=== PATIENT | female | born 1985 | race Caucasian/White ===

== ENCOUNTER 2016-07-31 23:31 | Emergency (ER) | payer MEDICAID ==
[2009-12-23 15:38] VITALS: BMI 22.6
[2016-08-01 00:28] LABS: HEMOGLOBIN 13.1 g/dL (12-16); LYMPHOCYTES 33.2 % (15-50); MCH 29.6 pg (26.0-34.0); MCHC 34.5 g/dL (31.0-37.0); MCV 85.8 fL (80.0-100.0); MEAN PLATELET VOLUME 10.6 fL (7.4-10.4); NEUTROPHILS 55.6 % (40-80); RBC 4.43 10x6/uL (4.00-5.40); RDW 12.7 % (11.5-14.5); WBC 5.8 10x3/uL (4.8-10.8)
[2016-08-01 00:31] LABS: PLATELET COUNT 206 10x3/uL (130-400)
== END 2016-08-01 00:45 | disposition home or self-care (01) ==
LOC: D.ER 23:31
PROVIDERS: Nurse Practitioner Acute Care
DX: B02.9 Zoster without complications (principal); F17.200 Nicotine dependence, unspecified, uncomplicated

== ENCOUNTER → 2017-02-04 17:07 | Outpatient (CLI) | payer MEDICAID ==
[2009-12-23 15:38] VITALS: BMI 22.6
[2017-02-04 19:33] LABS: APPEARANCE CLEAR (CLEAR); BILIRUBIN NEGATIVE (NEGATIVE); COLOR YELLOW (YELLOW); GLUCOSE NEGATIVE (NEGATIVE); KETONE NEGATIVE (NEGATIVE); LEUKOCYTE ESTERASE NEGATIVE (NEGATIVE); NITRITE NEGATIVE (NEGATIVE); PROTEIN NEGATIVE (NEGATIVE); UROBILINOGEN NORMAL (NORMAL)
== END | disposition home or self-care (01) ==
LOC: D.LDO 17:07
PROVIDERS: Obstetrics & Gynecology
DX: O26.899 Other specified pregnancy related conditions, unspecified trimester (principal); Z3A.00 Weeks of gestation of pregnancy not specified; M54.5 Low back pain; N89.8 Other specified noninflammatory disorders of vagina

== ENCOUNTER 2017-02-26 22:22 | Outpatient (CLI) | payer MEDICAID ==
[2009-12-23 15:38] VITALS: BMI 22.6
== END 2017-02-26 23:05 | disposition home or self-care (01) ==
LOC: D.LDO 22:22
DX: O26.892 Other specified pregnancy related conditions, second trimester (principal); Z3A.25 25 weeks gestation of pregnancy

== ENCOUNTER → 2017-03-28 19:27 | Outpatient (CLI) | payer MEDICAID ==
[2009-12-23 15:38] VITALS: BMI 22.6
[~2017-03-28 19:27] MED LIST: AUGMENTIN 875-11 TAB PO; PERCOCET 10/3251 TA1 PO; VIBRAMYCIN 100100 MG PO; ZOFRAN ODT4 MG/UDTAB PO
[2017-03-28 20:19] LABS: APPEARANCE HAZY (CLEAR); BILIRUBIN NEGATIVE (NEGATIVE); COLOR YELLOW (YELLOW); GLUCOSE 100 mg/dL (NEGATIVE); KETONE NEGATIVE (NEGATIVE); NITRITE NEGATIVE (NEGATIVE); PROTEIN NEGATIVE (NEGATIVE); UROBILINOGEN NORMAL (NORMAL)
[2017-03-28 20:21] LABS: BACTERIA FEW /hpf (NONE SEEN); EPITHELIAL CELLS 0-5 /hpf (0-5); WHITE CELLS - URINE 0-5 /hpf (0-5)
[2017-04-26 20:43] VITALS: BMI 16.6
== END | disposition home or self-care (01) ==
LOC: D.LDO 19:27
PROVIDERS: Obstetrics & Gynecology
DX: O26.893 Other specified pregnancy related conditions, third trimester (principal); Z3A.30 30 weeks gestation of pregnancy; M54.5 Low back pain; R10.30 Lower abdominal pain, unspecified; N89.8 Other specified noninflammatory disorders of vagina; R30.0 Dysuria; R35.0 Frequency of micturition; R39.15 Urgency of urination

== ENCOUNTER → 2017-04-08 13:05 | Outpatient (CLI) | payer MEDICAID ==
[2009-12-23 15:38] VITALS: BMI 22.6
[2017-04-26 20:43] VITALS: BMI 16.6
== END | disposition home or self-care (01) ==
LOC: D.LDO 13:05
DX: O36.8130 Decreased fetal movements, third trimester, not applicable or unspecified (principal); Z3A.31 31 weeks gestation of pregnancy

== ENCOUNTER → 2017-04-12 20:52 | Outpatient (CLI) | payer MEDICAID ==
[2009-12-23 15:38] VITALS: BMI 22.6
[2017-04-26 20:43] VITALS: BMI 16.6
== END | disposition home or self-care (01) ==
LOC: D.LDO 20:52
DX: O42.913 Preterm premature rupture of membranes, unspecified as to length of time between rupture and onset of labor, third trimester (principal); Z3A.32 32 weeks gestation of pregnancy

== ENCOUNTER 2017-04-26 14:19 | Inpatient (IN) | payer MEDICAID ==
[~2017-04-26] VITALS: Ht 165.1 cm; Wt 45.5 kg
[2017-04-26] VITALS (8 sets, daily range): BP systolic 108–118; BP diastolic 52–68; Ht 165.1 cm; Wt 45.5 kg
[~2017-04-26 14:19] MED LIST changes: -AUGMENTIN 875-11 TAB PO; -PERCOCET 10/3251 TA1 PO; -VIBRAMYCIN 100100 MG PO
[2017-04-26 15:41] LABS: RBC 2.69 10x6/uL (4.00-5.40); WBC 23.6 10x3/uL (4.8-10.8)
[2017-04-26 15:44] LABS: HEMATOCRIT 22.4 % (36.0-48.0); HEMOGLOBIN 7.1 g/dL (12-16); MCH 26.4 pg (26.0-34.0); MCHC 31.7 g/dL (31.0-37.0); MCV 83.3 fL (80.0-100.0); MEAN PLATELET VOLUME 9.4 fL (7.4-10.4); PLATELET COUNT 250 10x3/uL (130-400); RDW 15.8 % (11.5-14.5)
[2017-04-26 15:47] LABS: ALBUMIN 1.7 g/dL (3.4-5.0); ALKALINE PHOSPHATASE 131 U/L (46-116); ALT (SGPT) 16 U/L (10-68); AMYLASE - SERUM 38 U/L (25-115); CALC OSMOLALITY 272 mosm/kg (275-300); CARBON DIOXIDE 28.2 mmol/L (21.0-32.0); CHLORIDE - SERUM 100 mmol/L (98-107); CREATININE - SERUM 0.5 mg/dL (0.6-1.3); GLUCOSE 104 mg/dL (74-106); LIPASE 91 U/L (73-393); POTASSIUM - SERUM 3.8 mmol/L (3.5-5.1); PROTEIN - SERUM 5.5 g/dL (6.4-8.2); SODIUM 137 mmol/L (136-145); UREA NITROGEN 10 mg/dL (7-18); eGFR NON AFRICAN AMERICAN > 90 mL/min (90-120)
[2017-04-26 16:27] LABS: APPEARANCE HAZY (CLEAR); COLOR YELLOW (YELLOW)
[2017-04-26 16:28] LABS: BILIRUBIN NEGATIVE (NEGATIVE); GLUCOSE NEGATIVE (NEGATIVE); KETONE NEGATIVE (NEGATIVE); NITRITE NEGATIVE (NEGATIVE); PROTEIN NEGATIVE (NEGATIVE); UROBILINOGEN NORMAL (NORMAL); WHITE CELLS - URINE >50 /hpf (0-5)
[2017-04-26 16:29] LABS: BACTERIA MODERATE /hpf (NONE SEEN)
[2017-04-26 16:49] LABS: LYMPHOCYTES 9 % (15-50); NEUTROPHILS 90 % (40-80); PLATELET ESTIMATE NORMAL
[2017-04-26 19:22] LABS: RBC 2.55 10x6/uL (4.00-5.40); WBC 22.5 10x3/uL (4.8-10.8)
[2017-04-26 19:23] LABS: BASOPHILS 0.2 % (0-2); EOSINOPHILS 0.5 % (0-7); HEMATOCRIT 21.2 % (36.0-48.0); HEMOGLOBIN 6.9 g/dL (12-16); IMMATURE GRANULOCYTES 3.7 % (0-5); LYMPHOCYTES 4.5 % (15-50); MCH 27.1 pg (26.0-34.0); MCHC 32.5 g/dL (31.0-37.0); MCV 83.1 fL (80.0-100.0); MEAN PLATELET VOLUME 9.2 fL (7.4-10.4); MONOCYTES 5.5 % (2-11); NEUTROPHILS 85.6 % (40-80); PLATELET COUNT 246 10x3/uL (130-400); RDW 15.6 % (11.5-14.5)
--- NOTE | 2017-04-26 20:30 | NUR ---
DR SULLIVAN NOTIFIED TO CLARIFY PRBC ORDER, ORDERS TO TRANSFUSE 2 UNITS, MAY CANCEL OTHER ORDER FOR PRBC
--- NOTE | 2017-04-26 20:39 | NUR ---
RECEIVED PT VIA STRETCHER FROM ED, PT AMB TO BR, GAIT STEADY, GOWN, REJI PAD AND PANTIES PROVIDED AT THIS TIME
--- NOTE | 2017-04-26 20:43 | NUR ---
PT OUT OF BR, TO BED, PT REPORTS HAVING A LOOSE BM, ADMITTING ASSESSMENT AND HISTORY STARTED
--- NOTE | 2017-04-26 20:45 | NUR ---
BLOOD CONSENT SIGNED AND WITNESSED PER THIS RN AND HIRO BENITO RN
[2017-04-26] MEDS ORDERED: PERCOCET 10/3251 TA1 PO (21:10)
--- NOTE | 2017-04-26 21:11 | NUR ---
ADMITTING ASSESSMENT AND HISTORY COMPLETED, SALINE LOCK IN RIGHT WRIST AND LEFT FA CONVERTED TO IV, NS STARTED IN RIGHT WRIST INFUSING VIA PUMP AT 125 ML/HR, AND NS STARTED IN LEFT FA INFUSING VIA PUMP AT 50 ML/HR FOR PRBC, SCD'S APPLIED AND WORKING PROPERLY, PT INST ON BLOOD TRANSFUSION, VERBALIZES UNDERSTANDING, DENIES NEEDS OR PAIN AT THIS TIME
--- NOTE | 2017-04-26 21:36 | NUR ---
BLOOD VERIFIED AND INITIATED PER P AND P. MEDS GIVEN ORDERED. PT SIPPING ON MAG CIT. STATES IT MAKES HER NAUSEATED. SWALLOWED DUCOLAX WITHOUT DIFFICULTY.
--- NOTE | 2017-04-26 22:15 | NUR ---
DENIES PAIN AT THIS TIME. STILL SIPPING WITH ENCOURAGEMENT ON MAG CIT. LESS THAN 2 OZ INGESTED SO FAR.
--- NOTE | 2017-04-26 22:42 | NUR ---
PT RESTING WITH EYES CLOSED, AROUSES TO SOFT VERBAL STIMULATION, DILAUDID TRUST EVALUATION SUPERVISOR INITIATED FOR PAIN MANAGEMENT, PT DENIES PAIN AT THIS TIME, PT INST ON AND VERBALIZES UNDERSTANDING OF TRUST EVALUATION SUPERVISOR, CHAVEZ SAUNDERS RN CONTINUES MONITORING OF BLOOD TRANSFUSION
[2017-04-27] VITALS (11 sets, daily range): BP systolic 104–123; BP diastolic 54–77
--- NOTE | 2017-04-27 00:10 | NUR ---
FIRST UNIT OF PRBC FINISHED INFUSING, CHAVEZ SAUNDERS RN IN CHANGING TUBING FOR SECOND UNIT
--- NOTE | 2017-04-27 00:25 | NUR ---
CHAVEZ SAUNDERS RN AND THIS RN VERIFIES PRBC, CHAVEZ SAUNDERS RN STARTED 2ND UNIT AND CONTINUES AT BEDSIDE
--- NOTE | 2017-04-27 00:38 | NUR ---
UP TO BATHROOM. NO DIZZINESS NOTED. PT WITH 2ND UNIT OF B+ BLOOD INFUSING IN COMPLIANCE WITH [facility]. VERIFIED BEFORE ADMINISTRATION WITH 2ND NURSE.
--- NOTE | 2017-04-27 02:25 | NUR ---
2ND UNIT FINISHED INFUSING, LINE FLUSHING WITH NS, PT UP TO BR WITH ASSISTANCE, GAIT STEADY, PT REQUESTS TO SIT ON TOILET FOR A FEW MINUTES, PT INST TO USE CALL LIGHT FOR ANY ASSISTANCE
--- NOTE | 2017-04-27 02:46 | NUR ---
THIS RN BACK TO ROOM, PT IN BED AT THIS TIME, SCD'S RECONNECTED AND WORKING PROPERLY, OBTAINED ANOTHER TEMP, TEMP 100.6, ADM TYLENOL RC AND HUNG MERREM IVPB PER MD ORDERS, SEE EMAR, IV IN LEFT FA CONVERTED TO SL, FLUSHED WITH 10MLS OF NS WITH NO DIFFICULTY, PT INFORMED THAT I WILL BE BACK AROUND 0325 TO OBTAIN 1 HOUR POST OP VITAL SIGNS, AND THAT LAB WILL BE DOWN THIS MORNING AROUND 5AM TO OBTAIN LAB DRAW, PT VERBALIZES UNDERSTANDING, PT USING COLLECTION ADMINISTRATOR "A LITTLE" FOR PAIN OF 3/10, PT DENIES NEEDS AT THIS TIME
--- NOTE | 2017-04-27 03:25 | NUR ---
PT RESTING WITH EYES CLOSED, AROUSES TO SOFT VERBAL STIMULATION, 1 HOUR POST OP VS OBTAINED, RATES INC PAIN 3/10, PT INST TO PUSH PROCUREMENT PROFESSIONAL LOGISTICS BUTTON AT THIS TIME, PT DENIES NEEDS
--- NOTE | 2017-04-27 05:30 | NUR ---
NEW BAG OF NS HUNG INFUSING VIA PUMP 125 ML/HR, SCD'S CONTINUE ON AND WORKING PROPERLY, NO NEEDS VOICED
[2017-04-27 07:12] LABS: BASOPHILS 0.2 % (0-2); EOSINOPHILS 1.4 % (0-7); HEMOGLOBIN 8.9 g/dL (12-16); IMMATURE GRANULOCYTES 6.2 % (0-5); LYMPHOCYTES 6.1 % (15-50); MCH 27.4 pg (26.0-34.0); MCV 83.1 fL (80.0-100.0); MEAN PLATELET VOLUME 9.5 fL (7.4-10.4); MONOCYTES 4.6 % (2-11); NEUTROPHILS 81.5 % (40-80); PLATELET COUNT 226 10x3/uL (130-400); RBC 3.25 10x6/uL (4.00-5.40); RDW 14.9 % (11.5-14.5)
[2017-04-27 07:14] LABS: ALBUMIN 1.6 g/dL (3.4-5.0); ALKALINE PHOSPHATASE 121 U/L (46-116); ALT (SGPT) 14 U/L (10-68); CALC OSMOLALITY 282 mosm/kg (275-300); CARBON DIOXIDE 24.2 mmol/L (21.0-32.0); CHLORIDE - SERUM 107 mmol/L (98-107); CREATININE - SERUM 0.4 mg/dL (0.6-1.3); GLUCOSE 91 mg/dL (74-106); POTASSIUM - SERUM 3.8 mmol/L (3.5-5.1); SODIUM 142 mmol/L (136-145); UREA NITROGEN 13 mg/dL (7-18); eGFR NON AFRICAN AMERICAN > 90 mL/min (90-120)
--- NOTE | 2017-04-27 07:21 | NUR ---
SHIFT REPORT TO KANE PONCE RN
--- NOTE | 2017-04-27 09:48 | NUR ---
PT IS UP TO BR TO VOID. SHE IS DOING OK. OFFERS NO COMPLAINTS AT THIS TIME. IS LOOKING FORWARD TO BEING DISCHAGED AND GOING TO SEE HER BABY WHO IS IN CONFUCIANIST.
--- NOTE | 2017-04-27 11:20 | NUR ---
BREASTPUMP LOAN FORM SIGNED BY PATIENT. BREASTPUMP AND BREAST PUMP APPARATUS PROVIDED WITH INSTRUCTIONS ON USE. ASSISTED TO GET APPARATUS IN PLACE AND NOTING IMMEDIATE RETURN OF BREASTMILK. INSTRUCTED TO PUMP FOR AT LEAST 10 MIN EACH BREAST EVERY 2 HR DURING WAKING HOURS AND TO LABEL EACH SPECIMEN WITH TIME DATE OF COLLECTION AND TIME/DATE OF LAST NARCOTIC TAKEN. PATIENT IS ON DIALUDID ORTHOPEDICS NURSE. LABELS PROVIDED. VERBALIZES UNDERSTANDING OF SAME.
--- NOTE | 2017-04-27 14:10 | NUR ---
PT IS RESTING . BED IS LOW, SIDE RAILS UP X 2 AND CALL LIGHT IN REACH.
[2017-04-27 14:25] LABS: BASOPHILS 0.1 % (0-2); EOSINOPHILS 1.6 % (0-7); HEMATOCRIT 25.6 % (36.0-48.0); HEMOGLOBIN 8.4 g/dL (12-16); LYMPHOCYTES 5.6 % (15-50); MCHC 32.8 g/dL (31.0-37.0); MCV 82.3 fL (80.0-100.0); MEAN PLATELET VOLUME 9.7 fL (7.4-10.4); MONOCYTES 6.4 % (2-11); NEUTROPHILS 79.3 % (40-80); PLATELET COUNT 226 10x3/uL (130-400); RBC 3.11 10x6/uL (4.00-5.40); WBC 19.2 10x3/uL (4.8-10.8)
--- NOTE | 2017-04-27 18:50 | NUR ---
RECEIVED SHIFT REPORT FROM KANE PONCE RN
--- NOTE | 2017-04-27 19:25 | NUR ---
PT IS USING BREASTPUMP AT THIS TIME, REQUESTS SOME ASSISTANCE, PRAVIN DEAL RN FROM [facility] TO ROOM FOR ASSISTANCE AT THIS TIME, INFORMED PT THAT I WILL BE BACK SHORTLY TO DO ASSESSMENT, PT VERBALIZES UNDERSTANDING
--- NOTE | 2017-04-27 20:05 | NUR ---
ASSESSMENT PER FLOW SHEET, VS OBTAINED, SALINE LOCK IN LEFT FA INTACT WITH NO REDNESS OR EDEMA, IV IN RIGHT WRIST INTACT WITH NO REDNESS OR EDEMA INFUSING VIA PUMP NS AT 125 ML/HR, DILAUDID METAL CUTTER TO DELIVER 0.2MG/10MINS FOR PAIN CONTROL, PT RATES INC PAIN 07/23, BIKINI INC WITH DERMABOND CDI WITH NO DRAINAGE NOTED, PT REPORTS LITE BLEEDING WITH NO CLOTS, PT REPORTS FLATUS, SEVERAL BM'S TODAY, AND VOIDING WITH NO DIFFICULTY, EMPTIED 900 MLS OF LIGHTLY BLOOD TINGED URINE FROM [place] HAT, PT REPORTS THAT IS 3 VOIDS, PT INST THAT WHILE IN BED, SCD'S HAD TO BE WORN, SCD'S APPLIED AND WORKING PROPERLY, PT INFORMED OF TEMP AND WILL NEED TYLENOL, PT REQUESTS THAT SHE TAKE THE TYLENOL ORALLY AND NOT RECTALLY, INFORMED PT THAT I WILL CONTACT THE DOCTOR WELL TESTING OPERATOR AND SEE ABOUT GETTING IT CHANGED, PT VERBALIZES UNDERSTANDING
--- NOTE | 2017-04-27 20:23 | NUR ---
DR OCHOA NOTIFIED, REPORT OF PT'S TEMP AND REQUEST FOR TYLENOL ORALLY, ORDERS RECEIVED
--- NOTE | 2017-04-27 20:33 | NUR ---
NEW BAG OF NS HUNG VIA PUMP AND ADM TYLENOL PO PER MD ORDERS, SEE EMAR, PT DENIES FURTHER NEEDS AT THIS TIME
--- NOTE | 2017-04-27 21:05 | NUR ---
PT PLANTING MATERIAL UNLOADER LIGHT, SCD'S DISCONNECTED, UP TO BR, GAIT STEADY, VOIDED 500 MLS OF LIGHTLY BLOOD TINGED URINE, PT BACK TO BED, SCD'S RECONNECTED AND WORKING PROPERLY, DENIES FURTHER NEEDS
--- NOTE | 2017-04-27 22:00 | NUR ---
PT AWAKE, LOOKING AT CELL PHONE, OBTAINED TEMP, PT DENIES NEEDS AT THIS TIME
--- NOTE | 2017-04-27 22:25 | NUR ---
PT STOCK SHEETS CLEANER INSPECTOR LIGHT, PT UP TO BR, GAIT STEADY, I ENC PT TO AMB IN [place] AFTER VOIDING, PT AGREES, PT AMB IN [place] TO NSY AND BACK TO ROOM, GAIT STEADY, THIS RN AT SIDE, PT BACK TO BED, SCD'S REAPPLIED AND WORKING PROPERLY, PT SHOW'S ME PICTURES OF NEW BABY, PT DENIES FURTHER NEEDS AT THIS TIME
--- NOTE | 2017-04-28 00:22 | NUR ---
PT RESTING WITH EYES CLOSED, RESP QUIET, NO DISTRESS NOTED, LEFT UNDISTURBED AT THIS TIME, SCD'S CONTINUE ON AND WORKING PROPERLY
--- NOTE | 2017-04-28 02:39 | NUR ---
PT RESTING WITH EYES CLOSED, AROUSES TO SOFT VERBAL STIMULATION, MERREM HUNG IVPB PER MD ORDERS, SEE EMAR, SCD'S DISCONNECTED, PT UP TO BR, GAIT STEADY, PT INST TO USE CALL LIGHT WHEN FINISHED OR FOR ANY NEEDS, PT VERBALIZES UNDERSTANDING
--- NOTE | 2017-04-28 04:13 | NUR ---
PT RESTING WITH EYES CLOSED, RESP QUIET, NO DISTRESS NOTED, LEFT UNDISTURBED AT THIS TIME
--- NOTE | 2017-04-28 05:14 | NUR ---
NEW BAG OF NS HUNG VIA PUMP PER MD ORDERS, SEE EMAR, I&O'S COLLECTED, SCD'S CONTINUE ON AND WORKING PROPERLY, PT DENIES NEEDS AT THIS TIME
--- NOTE | 2017-04-28 05:50 | NUR ---
PT WARDROBE TECHNICIAN LIGHT, SCD'S DISCONNECTED, PT UP TO BR, GAIT STEADY, PT INST TO USE CALL LIGHT WHEN BACK IN BED
--- NOTE | 2017-04-28 06:06 | NUR ---
PT WINDOW TREATMENT INSTALLER LIGHT, PT BACK TO BED, EMPTIED 450 MLS OF LIGHTLY BLOOD TINGED URINE FROM [place] HAT, PT REPORTS HAVING A "VERY LARGE" FORMED BM, STATES "I FEEL BETTER", SCD'S RECONNECTED AND WORKING PROPERLY, PT DENIES FURTHER NEEDS
--- NOTE | 2017-04-28 06:50 | NUR ---
SHIFT REPORT TO KANE PONCE RN
--- NOTE | 2017-04-28 07:15 | NUR ---
PT IS RECEIVED THIS AM LYING IN BED. SHE STATES THAT SHE IS FEELING BETTER THIS AM. SHE STATES THAT SHE HAD A VERY LARGE BM THIS AM. GEN- AWAKE AND ALERT. LUNGS-CLEAR. HEART- RRR. ABD- SOFT, NT. LOW TRANSVERSE INCISION HEALED. EXT- WITH SCD'S INTACT. PT HAS IV R WRIST WHICH IS PATENT WITH NS INFUSING AT 125 CC/HR. SHE ALSO HAS SALINE LOCK NOTED L FOREARM. BED IS LOW, SIDE RAILS UP X 2 AND CALL LIGHT IN REACH.
--- NOTE | 2017-04-28 08:32 | NUR ---
pt had temp of 100.7 tylenol given po.
[2017-04-28 08:49] VITALS: BP 115/55
--- NOTE | 2017-04-28 09:11 | NUR ---
PTS [place] CATH WAS REMOVED. 800 CC THIS AM.
--- NOTE | 2017-04-28 09:13 | NUR ---
DR SULLIVAN IS HERE TO SEE PT. TOLD HIM ABOUT FEVER LAST PM AND THIS AM. HE REQUESTED A CONSULT BY DR OLIVARES. I PAGED DR OLIVARES AND GAVE HER THE CONSULT. SHE WANTS BLOOD CULTURES DONE. SHE WILL SEE HER TODAY.
[2017-04-28 09:27] LABS: BASOPHILS 0.2 % (0-2); EOSINOPHILS 1.4 % (0-7); HEMATOCRIT 26.3 % (36.0-48.0); HEMOGLOBIN 8.6 g/dL (12-16); LYMPHOCYTES 6.6 % (15-50); MCHC 32.7 g/dL (31.0-37.0); MCV 82.4 fL (80.0-100.0); MEAN PLATELET VOLUME 9.2 fL (7.4-10.4); MONOCYTES 6.6 % (2-11); NEUTROPHILS 78.2 % (40-80); PLATELET COUNT 239 10x3/uL (130-400); RBC 3.19 10x6/uL (4.00-5.40); RDW 15.1 % (11.5-14.5); WBC 20.6 10x3/uL (4.8-10.8)
--- NOTE | 2017-04-28 09:49 | NUR ---
CBC RESULTS FROM 915 WBC 20.6 H&H- 8.6/26.3
[2017-04-28 12:30] VITALS: BP 111/57
--- NOTE | 2017-04-28 13:00 | NUR ---
PT IS RESTING IN BED. NO COMPLAINTS. BED IS LOW, SIDE RAILS UP X 2 AND CALL LIGHT IN REACH.
--- NOTE | 2017-04-28 15:52 | NUR ---
PT IS SLEEPING. BED IS LOW, SIDE RAILS UP X 2 AND CALL LIGHT IN REACH.
--- NOTE | 2017-04-28 18:04 | NUR ---
PT IS LYING IN BED WATCHING TV. HER UNASYN DOSE WAS INITIATED. SHE OFFERS NO COMPLAINTS. HER TEMP IS 102.3. SHE HAS VOIDED TIMES THREE. IV PATENT R WRIST. SALINE LOCK D'CD LEFT FOREARM. TIP INTACT. BED IS LOW. SIDE RAILS UP X 2 AND CALL LIGHT IN REACH.
--- NOTE | 2017-04-28 18:10 | NUR ---
TYLENOL GIVEN FOR FEVER PO
--- NOTE | 2017-04-28 19:32 | NUR ---
ASSESSMENT PER FLOW SHEET, WILL OBTAIN VS AT BEDTIME, IV IN RIGHT WRIST INTACT WITH NO REDNESS OR EDEMA INFUSING VIA PUMP NS AT 125 ML/HR, BIKINI INC WITH DERMABOND CDI WITH NO DRAINAGE, SLIGHT REDNESS TO UPPER RIGHT SIDE OF INC, REJI PAD OVER INC FOR COMFORT AND MOISTURE CONTROL, PT REPORTS FLATUS, SEVERAL BM'S TODAY AND VOIDING BY SELF WITH NO DIFFICULTY, PT UP TO CHAIR, BEDDING CHANGED, CLEAN GOWN APPLIED TO PT, TOILETRIES PROVIDED, TRASH REMOVED, PT IS GOING TO CONTINUE SITTING IN RECLINER AND BRUSH HAIR OUT, PT DENIES FURTHER NEEDS OR PAIN AT THIS TIME
[2017-04-28 20:40] VITALS: BP 100/53
--- NOTE | 2017-04-28 20:40 | NUR ---
PT RESTING IN BED, VS OBTAINED, SCD'S PLACED ON AND WORKING PROPERLY, DENIES NEEDS OR PAIN AT THIS TIME
--- NOTE | 2017-04-28 21:28 | NUR ---
PT RESTING WITH EYES CLOSED, RESP QUIET, NO DISTRESS NOTED, LEFT UNDISTURBED AT THIS TIME
--- NOTE | 2017-04-28 21:47 | NUR ---
PT CHANGE MANAGEMENT LIGHT, SCD'S DISCONNECTED, PT UP TO BR, GAIT STEADY, VOIDED 300 MLS OF LIGHTLY BLOOD TINGED URINE BY SELF WITH NO DIFFICULTY, PT BACK TO BED, SCD'S RECONNECTED AND WORKING PROPERLY, DENIES PAIN, REQUESTED AND SERVED ICE CHIPS, DENIES FURTHER NEEDS
--- NOTE | 2017-04-28 22:10 | NUR ---
PT AWAKE, DENIES NEEDS OR PAIN AT THIS TIME
--- NOTE | 2017-04-28 23:52 | NUR ---
VÍCTOR WELLS, FURNACE FEEDER NOTIFIED FOR UNASYN, ORDER FAXED TO HER
--- NOTE | 2017-04-29 00:28 | NUR ---
PT RESTING WITH EYES CLOSED, AROUSES TO SOFT VERBAL STIMULATION, TEMP 99.9, NEW BAG OF NS HUNG AND UNASYN HUNG IVPB PER MD ORDERS, SEE EMAR, PT DENIES NEEDS OR PAIN AT THIS TIME
--- NOTE | 2017-04-29 01:03 | NUR ---
DOXYCYCLINE HUNG IVPB PER MD ORDERS, SEE EMAR
--- NOTE | 2017-04-29 02:35 | NUR ---
PT TANNING CONSULTANT LIGHT, SCD'S DISCONNECTED, PT UP TO BR, VOIDED BY SELF WITH NO DIFFICULTY, PT BACK TO BED, SCD'S RECONNECTED AND WORKING PROPERLY, DENIES FURTHER NEEDS OR NEED FOR PAIN MED
--- NOTE | 2017-04-29 04:30 | NUR ---
PT RESTING WITH EYES CLOSED, RESP QUIET, NO DISTRESS NOTED, LEFT UNDISTURBED AT THIS TIME
[2017-04-29 05:51] LABS: BASOPHILS 0.2 % (0-2); EOSINOPHILS 1.2 % (0-7); HEMATOCRIT 26.5 % (36.0-48.0); HEMOGLOBIN 8.7 g/dL (12-16); IMMATURE GRANULOCYTES 3.5 % (0-5); LYMPHOCYTES 6.6 % (15-50); MCH 27.2 pg (26.0-34.0); MCHC 32.8 g/dL (31.0-37.0); MCV 82.8 fL (80.0-100.0); MEAN PLATELET VOLUME 9.4 fL (7.4-10.4); MONOCYTES 5.1 % (2-11); NEUTROPHILS 83.4 % (40-80); PLATELET COUNT 237 10x3/uL (130-400); RDW 15.1 % (11.5-14.5); WBC 19.9 10x3/uL (4.8-10.8)
--- NOTE | 2017-04-29 06:19 | NUR ---
PT RESTING WITH EYES CLOSED, AROUSES TO SOFT VERBAL STIMULATION UNASYN HUNG IVPB PER MD ORDERS, SEE EMAR, TEMP 100.2, WILL CONTINUE TO MONITOR, PT DENIES NEEDS OR PAIN AT THIS TIME
[2017-04-29 07:30] VITALS: BP 119/64
--- NOTE | 2017-04-29 07:30 | NUR ---
PT WAS RECEIVED THIS AM LYING IN BED. PT STATES THAT SHE IS READY TO GO HOME. GEN- AWAKE AND ALERT. LUNGS- CLEAR. HEART- RRR. ABD- SOFT WITH TENDERNESS, BS +. INCISION IS HEALING FROM C- SEC DONE 04/21. EXT - WITH NO EDEMA. SCD'S INTACT. IV PATENT R FOREARM. BED IS LOW, SIDE RAILS UP X 2 AND CALL LIGHT IN REACH.
--- NOTE | 2017-04-29 07:30 | NUR ---
PELVIC US DONE THIS AM.
--- NOTE | 2017-04-29 08:46 | NUR ---
DR OLIVARES IS HERE TO SEE PT. NEW ORDERS NOTED.
--- NOTE | 2017-04-29 09:07 | NUR ---
PT IS UP AMBULATING IN HALLWAY.
--- NOTE | 2017-04-29 09:53 | NUR ---
PT IS RESTING IN BED. SHE OFFERS NO COMPLAINTS.
--- NOTE | 2017-04-29 12:54 | NUR ---
PT IS UP AMBULATING IN HALLWAY. SHE OFFERS NO COMPLAINTS. PT BACK TO ROOM AND IV ANTIBIOTIC, UNASYN INITIATED. TEMP IS 99.3.
--- NOTE | 2017-04-29 14:16 | NUR ---
HUNG IV ANTIBIOTIC DOXYCYCLINE. PT OFFERS NO COMPLAINTS.
--- NOTE | 2017-04-29 14:40 | NUR ---
PT TRANSFERRED TO 2204. REPORT GIVEN TO VÍCTOR FOSTER. NO PROBLEMS ENCOUNTERD. PT IN BED. SIDE RAILS UP X 2 BED IS LOW AND CALL LIGHT IN REACH. IV PATENT R WRIST.
--- NOTE | 2017-04-29 14:55 | NUR ---
BEDSIDE REPORT OBTAINED FROM KANE RN, PT TRANSFERED TO ROOM 2205 FROM [facility] WITH UTERINE INFECTION. PIV NOTED TO RIGHT FORARM. PATENT TO FLUIDS PER ORDER.
[2017-04-29 15:51] VITALS: BP 124/58
--- NOTE | 2017-04-29 18:10 | NUR ---
PT HAS NO COMPLAINTS AT THIS TIME. STATES INCISIONAL AREA IS OK-STILL WARM AND PINK. HOPING FOR DISCHARGE ON TUESDAY. CALL LIGHT IN REACH
[2017-04-29 20:00] VITALS: BP 124/59
[2017-04-30] VITALS: BP 100/57
[2017-04-30 04:00] VITALS: BP 109/67
--- NOTE | 2017-04-30 07:54 | NUR ---
PATIENT IS RESTING IN HER BED. PATIENT IS AWAKE, ALERT, AND ORIENTED X4. NO COMPLAINTS OF PAIN AT PRESENT TIME. CALL LIGHT IN PATIENT'S REACH. PATIENT DENIES ANY NEEDS AT PRESENT TIME. WILL MONITOR PATIENT FOR ANY NEEDS.
[2017-04-30 08:01] LABS: BASOPHILS 0.2 % (0-2); EOSINOPHILS 1.2 % (0-7); HEMATOCRIT 28.4 % (36.0-48.0); HEMOGLOBIN 9.3 g/dL (12-16); IMMATURE GRANULOCYTES 1.8 % (0-5); LYMPHOCYTES 6.2 % (15-50); MCH 27.3 pg (26.0-34.0); MCHC 32.7 g/dL (31.0-37.0); MCV 83.3 fL (80.0-100.0); MONOCYTES 3.4 % (2-11); NEUTROPHILS 87.2 % (40-80); PLATELET COUNT 244 10x3/uL (130-400); RBC 3.41 10x6/uL (4.00-5.40); RDW 15.2 % (11.5-14.5); WBC 18.8 10x3/uL (4.8-10.8)
[2017-04-30 08:15] LABS: ALBUMIN 1.6 g/dL (3.4-5.0); ALKALINE PHOSPHATASE 100 U/L (46-116); ALT (SGPT) 12 U/L (10-68); BILIRUBIN - TOTAL 0.31 mg/dL (0.2-1.3); CALC OSMOLALITY 275 mosm/kg (275-300); CALCIUM 7.9 mg/dL (8.5-10.1); CARBON DIOXIDE 24.1 mmol/L (21.0-32.0); CHLORIDE - SERUM 106 mmol/L (98-107); CREATININE - SERUM 0.3 mg/dL (0.6-1.3); GLUCOSE 90 mg/dL (74-106); POTASSIUM - SERUM 3.4 mmol/L (3.5-5.1); PROTEIN - SERUM 5.7 g/dL (6.4-8.2); SODIUM 140 mmol/L (136-145); UREA NITROGEN 5 mg/dL (7-18); eGFR NON AFRICAN AMERICAN > 90 mL/min (90-120)
[2017-04-30 09:38] VITALS: BP 110/55
[2017-04-30 13:41] VITALS: BP 112/60
[2017-04-30 15:51] VITALS: BP 120/64
--- NOTE | 2017-04-30 18:43 | NUR ---
PATIENT RESTING IN BED AND LOOKING AT HER CELL PHONE. PATIENT DENIES ANY NEEDS AT PRESENT TIME. CALL LIGHT IN PATIENT'S REACH. WILL MONITOR PATIENT FOR ANY NEEDS.
--- NOTE | 2017-04-30 19:15 | NUR ---
RECEIVED CARE FROM DAY NURSE. PT UP IN RESTROOM AT THIS TIME.
[2017-04-30 20:00] VITALS: BP 102/42
[2017-05-01] VITALS: BP 102/52
--- NOTE | 2017-05-01 02:56 | NUR ---
PT LYING IN BED ON SIDE. EYES CLOSED. RESP EVEN AND UNLABORED. CALL LIGHT AT SIDE.
[2017-05-01 04:00] VITALS: BP 107/59
[2017-05-01 05:03] LABS: BASOPHILS 0.2 % (0-2); EOSINOPHILS 1.4 % (0-7); HEMATOCRIT 29.8 % (36.0-48.0); HEMOGLOBIN 9.6 g/dL (12-16); IMMATURE GRANULOCYTES 1.3 % (0-5); LYMPHOCYTES 7.6 % (15-50); MCH 27.4 pg (26.0-34.0); MCHC 32.2 g/dL (31.0-37.0); MCV 85.1 fL (80.0-100.0); MEAN PLATELET VOLUME 9.2 fL (7.4-10.4); MONOCYTES 4.1 % (2-11); NEUTROPHILS 85.4 % (40-80); RDW 15.2 % (11.5-14.5); WBC 16.8 10x3/uL (4.8-10.8)
[2017-05-01 05:08] LABS: PLATELET COUNT 299 10x3/uL (130-400)
[2017-05-01 05:31] LABS: ALBUMIN 1.7 g/dL (3.4-5.0); ALKALINE PHOSPHATASE 104 U/L (46-116); ALT (SGPT) 13 U/L (10-68); BILIRUBIN - TOTAL 0.27 mg/dL (0.2-1.3); CALC OSMOLALITY 279 mosm/kg (275-300); CALCIUM 8.2 mg/dL (8.5-10.1); CARBON DIOXIDE 25.4 mmol/L (21.0-32.0); CHLORIDE - SERUM 107 mmol/L (98-107); GLUCOSE 91 mg/dL (74-106); POTASSIUM - SERUM 3.6 mmol/L (3.5-5.1); SODIUM 142 mmol/L (136-145); UREA NITROGEN 5 mg/dL (7-18)
[2017-05-01 05:40] LABS: CREATININE - SERUM 0.4 mg/dL (0.6-1.3); eGFR NON AFRICAN AMERICAN > 90 mL/min (90-120)
[2017-05-01 08:15] VITALS: BP 112/58
[2017-05-01] MEDS ORDERED: VIBRAMYCIN 100100 MG PO (11:49)
[2017-05-01] MEDS ORDERED: AUGMENTIN 875-11 TAB PO (11:49)
--- NOTE | 2017-05-10 15:43 | CN ---
PATIENT NAME:SHILPA BRYANT MEDICAL RECORD: [id number] : 81 LOCATION:[facility] ADMIT DATE: 04/26/17 ACCOUNT: [id number] CONSULTING PHYSICIAN: CRISTIN ZAMAN MD REFERRING PHYSICIAN: EVA SULLIVAN MD DATE OF CONSULTATION: 04/26/2017 ADDENDUM CHIEF COMPLAINT: Abdominal pain. HISTORY OF PRESENT ILLNESS: I was asked to see the patient to rule out an iatrogenic injury to the large or small bowel or a bowel perforation. I have personally reviewed her CT images. I have personally reviewed the CT report. I examined the patient in the presence of a female nurse. The patient recently underwent a through a Pfannenstiel incision in [place]. She now presents with suprapubic pain and tenderness as well as fever. Clinically, she has had endometritis. On the CT scan, it appears that her very swollen uterus is compressing the rectosigmoid junction and this is leading to a backup of flatus as well as fecal material. Her colon is markedly distended. There is no free air. During the examination, she kept pushing my hands away. This limited my ability to examine her abdomen. Her abdomen is markedly distended and tympanitic. The tenderness is present in the lower quadrants but mainly in the suprapubic area. There is no peritonitis to percussion. A lot of palpation aggravates. Nothing alleviates. She describes her symptoms as severe. This is a consultation note addendum. For the typed portion of the consult note, please see the chart. This would include the past medical and surgical history, current medications, allergies, social history as well as family history. REVIEW OF SYSTEMS: No nausea, no vomiting. Positive for fever. No chills. Positive for abdominal pain. No headache, no chest pain, no shortness of breath. Review of systems is negative other than as is described above. PHYSICAL EXAMINATION: GENERAL: The patient does not appear acutely ill. She does appear chronically ill. VITAL SIGNS: Reviewed. The entire physical examination was performed in the presence of a female nurse. EARS: External ears appear normal. EYES: Extraocular movements are intact. NECK: Trachea is midline. CHEST: No intercostal retractions. PULMONARY: Nonlabored, no stridor. ABDOMEN: As described above. EXTREMITIES: No peripheral cyanosis. INTEGUMENT: No rash, no ulcerations. PSYCHIATRIC: Anxious affect. NEUROLOGIC: Nonfocal, no lethargy. BACK: No thoracic kyphosis. CONSULT REPORT [id number] SHILPA BRYANT LYMPHATICS: No lymphangitic streaking of the exposed extremities. IMPRESSION: Endometritis with a very swollen uterus compressing the rectosigmoid junction leading to the appearance of a partial large bowel obstruction. PLAN: I have encouraged the patient to sleep on her side tonight. She states she cannot do that because it makes incision hurt too much. I will order Dulcolax tablets as well as magnesium citrate. PLAN: I will see the patient on a p.r.n. basis. TRANSINT:[id number] Voice Confirmation ID: [id number] DOCUMENT ID: [id number] CRISTIN ZAMAN MD at 1543 CC: [id number] DICTATION DATE: 04/26/172032 DAIRY FARMWORKER: 04/27/17 0009 DIS IN 05/01/17 [id number] [place] [address]
--- NOTE | 2017-06-25 06:53 | DS ---
PATIENT:SHILPA BRYANT :81 MEDICAL RECORD: [id number] DISCHARGE SUMMARY ADMISSION DATE: 04/26/17 DISCHARGE DATE: 05/01/17 HISTORY OF PRESENT ILLNESS: The patient was admitted on 04/26/2017. I evaluated the patient in the Emergency Room who is postop day #10 status post section at [facility] for rupture of membranes, complicated by chorioamnionitis. The patient came to the Emergency Room with worsening abdominal pain and distention and was noted to be febrile to 102 temperature. PAST MEDICAL HISTORY: The patient had a past medical history significant for; 1. Chorioamnionitis. 2. LATEX ALLERGY. 3. Smoker. 4. Asthma. 5. The patient had a history of gestational diabetes. PAST SURGICAL HISTORY: The patient had a surgical history significant for , orthopedic surgery involving the jaw and elbow as well as surgery and a cleft palate. ALLERGIES: The patient reported ALLERGY TO CODEINE. MEDICATIONS: Included only Zofran at that time. FAMILY HISTORY: The patient reported no significant family history. SOCIAL HISTORY: The patient reported being a daily smoker and no use of drugs or alcohol. PHYSICAL EXAMINATION: VITAL SIGNS: Stable on admission with the exception of a febrile episode in the Emergency Room. LUNGS: Clear to auscultation. CARDIOVASCULAR: Regular rate and rhythm. ABDOMEN: The abdomen was found to be significantly distended, although soft, without rebound or guarding. Erythema was noted around the incision. However, the incision was not found to be flocculent in anyway. ASSESSMENT AND PLAN: At that time, fever likely suspected endometritis with patient's history of chorioamnionitis. The wound was clean, dry, and intact with small amount of erythema. The patient had a CT scan, which revealed no abscess in the pelvis or inferior to the incision. Abdominal distension was questionable for inflammatory ileus. The patient was having flatus and no vomiting. Surgical consultation was obtained. It was felt that the findings were not consistent with any type of bowel injury as there are no fluid collection or abscess. The patient also has LATEX ALLERGY, smoker, had asthma, and anemia. At that time, he was admitted for IV antibiotics, Invanz, pain control with a Dilaudid CUT FILE CLERK and transfusion of 2 packed units of red blood cells. The patient was monitored closely for peritonitis with plan to obtain serial white blood cell counts. On hospital day #2, the patient's white blood cell count was found to be decreasing. The patient with slightly less distention and continuing flatus and antibiotics were continued. The patient had received 2 units of DISCHARGE SUMMARY REPORT [id number] SHILPA BRYANT packed red cells and hemoglobin was found to increase to 9.3, white count had decreased from 20.6 to 18.8. On hospital day #3, the patient had another spike to approximately 102, on meropenem. Initial cultures taken at admission showed no growth. The patient was changed to p.o. pain meds at that time. An ultrasound was ordered to evaluate for possible pyometrium or retained products of conception. White blood cell count did increase to 20. On hospital day #3, an infectious disease was consulted. On hospital day #4, the patient had a T-max of 102 at 6:00 p.m. the day before with further decrease in abdominal distention, antibiotics were changed per Dr. Hanson of infectious disease. White blood cell count had decreased from 20 to 19. Hemoglobin remained stable. Pain was well controlled with p.o. pain meds and the patient was tolerating general diet. On hospital day #5, T-max was 100.6 and decreasing abdominal distention, incision without evidence of cellulitis. The patient had a flatus and a bowel movement and tolerating general diet and p.o. pain meds. On hospital day #6, the patient continued to improve, white count down to 16. Incision was clean, dry, and intact. No abdominal or uterine tenderness. The patient was discharged home on Augmentin and doxycycline per Dr. Hanson with plans to follow up in 1 week. The patient was advised to check temperature q.4 hours at home and to call with any temperature over 100.5. TRANSINT:[id number] Voice Confirmation ID: [id number] DOCUMENT ID: [id number] EVA SULLIVAN MD at 0653 CC: [id number] DICTATION DATE: 06/11/17 1154 ART PROFESSOR: 06/11/17 1430 DIS IN 05/01/17 [place] [address]
== END 2017-05-01 17:19 | disposition home or self-care (01) | DRG 776 ==
LOC: D.ER 14:19 → D.WS 18:16 → D.MS 04-29 14:43
PROVIDERS: Family Medicine; ADMIT Obstetrics & Gynecology
DX: O86.12 Endometritis following delivery (principal); O90.81 Anemia of the puerperium; O99.335 Smoking (tobacco) complicating the puerperium

== ENCOUNTER 2018-01-09 12:09 | Emergency (ER) | payer MEDICAID ==
[~2018-01-09] VITALS: Ht 165.1 cm; Wt 47.7 kg
[~2018-01-09 12:09] MED LIST changes: +AUGMENTIN 875-11 TAB PO; +PERCOCET 10/3251 TA1 PO; +VIBRAMYCIN 100100 MG PO
[2018-01-09 12:11] VITALS: Ht 165.1 cm; Wt 47.7 kg
[2018-01-09 12:41] LABS: BASOPHILS 0 % (0-2); EOSINOPHILS 0.3 % (0-7); HEMATOCRIT 40.4 % (36.0-48.0); HEMOGLOBIN 13.2 g/dL (12-16); LYMPHOCYTES 12.7 % (15-50); MCH 26.2 pg (26.0-34.0); MCHC 32.7 g/dL (31.0-37.0); MCV 80.3 fL (80.0-100.0); MEAN PLATELET VOLUME 11.1 fL (7.4-10.4); MONOCYTES 1.8 % (2-11); NEUTROPHILS 85.2 % (40-80); RBC 5.03 10x6/uL (4.00-5.40); RDW 17.1 % (11.5-14.5); WBC 6.6 10x3/uL (4.8-10.8)
[2018-01-09 12:49] LABS: PLATELET COUNT 207 10x3/uL (130-400)
[2018-01-09 13:03] LABS: ALBUMIN 3.3 g/dL (3.4-5.0); ALKALINE PHOSPHATASE 62 U/L (46-116); ALT (SGPT) 19 U/L (10-68); BILIRUBIN - TOTAL 0.81 mg/dL (0.2-1.3); C-REACTIVE PROTEIN 8.5 mg/dL (0.0-0.9); CALC OSMOLALITY 272 mosm/kg (275-300); CALCIUM 8.5 mg/dL (8.5-10.1); CARBON DIOXIDE 25.3 mmol/L (21.0-32.0); CHLORIDE - SERUM 103 mmol/L (98-107); CREATININE - SERUM 0.6 mg/dL (0.6-1.3); POTASSIUM - SERUM 3.5 mmol/L (3.5-5.1); PROTEIN - SERUM 6.7 g/dL (6.4-8.2); SODIUM 136 mmol/L (136-145); UREA NITROGEN 10 mg/dL (7-18); eGFR NON AFRICAN AMERICAN > 90 mL/min (90-120)
[2018-01-09 13:04] LABS: GLUCOSE 143 mg/dL (74-106)
[2018-01-09] MEDS ORDERED: MEDROL DOSE PACK4 MG PO (15:23)
[2018-01-09] MEDS ORDERED: VISTARIL25 MG PO (15:23)
[2018-01-09 15:33] VITALS: BP 110/61
== END 2018-01-09 15:41 | disposition home or self-care (01) ==
LOC: D.ER 12:09
PROVIDERS: Family Medicine
DX: L50.9 Urticaria, unspecified (principal); T78.40XA Allergy, unspecified, initial encounter; X58.XXXA Exposure to other specified factors, initial encounter; K21.9 Gastro-esophageal reflux disease without esophagitis; F17.200 Nicotine dependence, unspecified, uncomplicated